=== PATIENT | male | born 1980 | race Caucasian/White ===

== ENCOUNTER 2017-09-21 12:44 | Emergency (ER) | payer SELFPAY ==
[~2017-09-21] VITALS: Wt 66.4 kg
--- NOTE | 2017-09-21 13:36 | ERD ---
ER Documentation Chief Complaint Chief Complaint SUTURE REMOVAL ON BACK OF HEAD HPI Patient is a 37-year-old male presents for staple removal. He had 9 samina placed to his scalp 3 weeks ago. He needs them removed. He has had no fevers or pus from the wound. He has no other complaints. He came in to get his samina removed. ROS All systems reviewed and are negative except as per history of present illness. Allergies Allergies: Coded Allergies: No Known Allergy (Unverified , 09/21/17) PMhx/Soc History of Surgery: Yes (samina to posterior head 3 weeks ago) Anesthesia Reaction: No Hx Neurological Disorder: No Hx Respiratory Disorders: No Hx Cardiac Disorders: No Hx Psychiatric Problems: No Hx Miscellaneous Medical Probl: No Hx Alcohol Use: No Hx Substance Use: No Hx Tobacco Use: No Smoking Status: Never smoker FmHx Family History: No diabetes Physical Exam Vitals Vital Signs Date Time Temp Pulse Resp B/P Pulse Ox O2 Delivery O2 Flow Rate FiO2 09/21/17 12:57 98.2 92 18 143/91 99 Physical Exam Const: No acute distress Head: 9 samina in the posterior scalp Eyes: Normal Conjunctiva ENT: Normal External Ears, Nose and Mouth. Neck: Full range of motion..~ No meningismus. Resp: Clear to auscultation bilaterally Cardio: Regular rate and rhythm, no murmurs Abd: Soft, non tender, non distended. Normal bowel sounds Skin: Incision of the scalp is clean, dry, and intact Back: No midline or flank tenderness Ext: No cyanosis, or edema Neur: Awake and alert Psych: Normal Mood and Affect Procedures/MDM Staple Removal by me: 9 samina removed with staple remover without incident. Wound shows no evidence of infection, foreign body, neurologic injury, vascular injury, open joint or tendon laceration. Patient to follow up PRN. Departure Diagnosis: Primary Impression: Encounter for removal of sutures Condition: Fair Patient Instructions: Staple Removal, No Complication [facility]: [facility] Usted se leos hecho un examen mdico de control que le indica que no est en lelia condicin que requiera tratamiento urgente en el Departamento de Emergencia. Un estudio ms profundo y el tratamiento de bartlett condicin pueden esperar sin ningn riesgo hasta que usted sea atendida/o en el consultorio de bartlett mdico o lelia cl dee. Es responsabilidad suya arreglar lelia yoselyn para el seguimiento del roshan. MANEJO DE CONDICIONES NO URGENTES EN EL FUTURO 1) Si usted tiene un mdico de atencin primaria: Usted debera llamar a bartlett mdico de atencin primaria antes de venir al departamento de emergencia. Despus de las horas de consultorio, bartlett doctor o bartlett asociado/a est disponible por telfono. El mdico o enfermero de gagan en el servicio telefnico puede asesorarle por ferny medio para atender el problema, o roshan contrario se puede programar lelia yoselyn. 2) Si usted no tiene un mdico de atencin primaria: Llame al mdico o clnica de referencia que aparece abajo rebeka las horas de consultorio para hacer lelia yoselyn para que le vean. CLINICAS: [facility] [phone] [facility] [phone] [facility]. [facility] [phone] [facility]. [place] [id number] [phone] [facility]. [place] [phone] [facility]. [phone] [address] Additional Instructions: Llame al doctor nombrado abajo (Referral Sources) MAANA y aneesh lelia YOSELYN PARA DENTRO DE LELIA SEMANA. Dgale a la secretaria que nosotros le instruimos hacer esta yoselyn.Avise o llame si bartlett condicin se empeora antes de la yoselyn. HAIM PATE MD Sep 21, 2017 13:36
== END 2017-09-21 13:40 | disposition home or self-care (01) ==
LOC: FTE 12:44
DX: Z48.02 Encounter for removal of sutures (principal)
CPT/HCPCS: 99281